=== PATIENT | male | born 1950 | race African-American/Black ===

== ENCOUNTER 2016-07-19 06:31 | Day surgery (SDC) | payer BC ==
--- NOTE | ~2016-07-19 | EGD ---
EGD REPORT [facility] [address] [address] NAME: BRYAN BARRIENTOS : [birth year] STATUS : REG [facility]#: [id number] AGE: 66 ADM/REG DATE : 07/19/16 MR#: [id number] REPORT SERV DATE: 07/19/16 DICTATED BY: RAGHU YANG DATE: 07/19/16 REPORT STATUS : Draft TRANSCRIBED BY: [facility] DATE: 07/19/16 Endoscopy Center Patient Name: Bryan Barrientos Date of : 1950 Attending MD: RAGHU YANG MD Procedure Date No Time: 07/19/2016 Procedure: Colonoscopy Indications: Iron deficiency anemia Referring MD: NUBIA ALFORD II Medicines: Propofol per Anesthesia Complications: No immediate complications. Procedure: Pre-Anesthesia Assessment: - ASA Grade Assessment: III - A patient with severe systemic disease. After I obtained informed consent, the scope was passed under direct vision. Throughout the procedure, the patient's blood pressure, pulse, and oxygen saturations were monitored continuously. The CF [id number] was introduced through the anus and advanced to the cecum, identified by appendiceal orifice and ileocecal valve. The colonoscopy was performed without difficulty. The patient tolerated the procedure well. The quality of the bowel preparation was adequate to identify polyps. Findings: A sessile polyp was found in the cecum. The polyp was 4 mm in size. This polyp was not removed due to pt on plavix. This polyp was not big enough to pose a threat A few medium-mouthed diverticula were found in the recto-sigmoid colon, in the sigmoid colon and in the descending colon. Internal hemorrhoids were found during retroflexion and were Grade I (internal hemorrhoids that do not prolapse). The rest of the colon was normal. Impression: - One 4 mm polyp in the cecum. - Diverticulosis in the recto-sigmoid colon, in the sigmoid colon and in the descending colon. - Internal hemorrhoids. Recommendation: - Discharge patient to home (ambulatory). Repeat colonosocpy in one year Procedure Code(s): --- Professional --- 16968, Colonoscopy, flexible, proximal to splenic flexure; diagnostic, with or without collection of EGD REPORT [address] [address] NAME: BRYAN BARRIENTOS : [birth year] STATUS : REG [facility] PAT#: [id number] AGE: 66 ADM/REG DATE : 07/19/16 MR#: [id number] REPORT SERV DATE: 07/19/16 DICTATED BY: RAGHU YANG. DATE: 07/19/16 REPORT STATUS : Draft TRANSCRIBED BY: [employer] DATE: 07/19/16 specimen(s) by brushing or washing, with or without colon decompression (separate procedure) Diagnosis Code(s): --- Professional --- D12.0, Benign neoplasm of cecum K64.0, First degree hemorrhoids K57.30, Diverticulosis of large intestine without perforation or abscess without bleeding D50.9, Iron deficiency anemia, unspecified CPT copyright 2013 [employer]. All rights reserved. The codes documented in this report are preliminary and upon director of tax services review may be revised to meet current compliance requirements. Raghu Yang MD RAGHU YANG MD 07/19/2016 8:34 AM This report has been signed electronically. Number of Addenda: 0 Note Initiated On: 07/19/2016 8:08 AM Scope Withdrawal Time 0 hours 3 minutes 18 seconds [address] [address]
--- NOTE | ~2016-07-19 | EGD ---
EGD REPORT [facility] [address] [address] NAME: BRYAN BARRIENTOS : [birth year] STATUS : REG [facility] PAT#: [id number] AGE: 66 ADM/REG DATE : 07/19/16 MR#: [id number] REPORT SERV DATE: 07/19/16 DICTATED BY: RAGHU YANG DATE: 07/19/16 REPORT STATUS : Draft [facility]ANSCRIBED BY: [facility] DATE: 07/19/16 Endoscopy Center Patient Name: Bryan Barrientos Date of : 1950 Attending MD: RAGHU YANG MD Procedure Date No Time: 07/19/2016 Procedure: Upper GI endoscopy Referring MD: NUBIA ALFORD II Medicines: Propofol per Anesthesia Complications: No immediate complications. Procedure: Pre-Anesthesia Assessment: - ASA Grade Assessment: III - A patient with severe systemic disease. After obtaining informed consent, the endoscope was passed under direct vision. Throughout the procedure, the patient's blood pressure, pulse, and oxygen saturations were monitored continuously. The GIF [id number] was introduced through the mouth, and advanced to the second part of duodenum. The upper GI endoscopy was accomplished without difficulty. The upper GI endoscopy was accomplished without difficulty. The patient tolerated the procedure well. Findings: The examined esophagus was normal. Diffuse mild inflammation characterized by erosions and erythema was found in the stomach. Diffuse mild inflammation was found in the duodenal bulb. Impression: - Normal esophagus. - Chronic gastritis. - Chronic duodenitis. Recommendation: - Discharge patient to home (ambulatory). - Return to nurse practitioner in 3 weeks. Procedure Code(s): --- Professional --- 42767, Esophagogastroduodenoscopy, flexible, transoral; diagnostic, including collection of specimen(s) by brushing or washing, when performed (separate procedure) Diagnosis Code(s): --- Professional --- K29.50, Unspecified chronic gastritis without bleeding K29.80, Duodenitis without bleeding EGD REPORT [facility] [address] [place]. [address] NAME: BRYAN BARRIENTOS : [birth year] STATUS : REG [facility] PAT#: [id number] AGE: 66 ADM/REG DATE : 07/19/16 MR#: [id number] REPORT SERV DATE: 07/19/16 DICTATED BY: RAGHU YANG. DATE: 07/19/16 REPORT STATUS : Draft TRANSCRIBED BY: [employer] DATE: 07/19/16 CPT copyright 2013 [employer]. All rights reserved. The codes documented in this report are preliminary and upon clutch mechanic review may be revised to meet current compliance requirements. Raghu Yang MD RAGHU YANG MD 07/19/2016 8:23 AM This report has been signed electronically. Number of Addenda: 0 Note Initiated On: 07/19/2016 8:13 AM Scope Withdrawal Time 0 hours 0 minutes 0 seconds [address] [place] [address]
[~2016-07-19 06:31] MED LIST: ALLEGRA180 PO; ASABAYER PO; DIOV160 PO; LIPITOR40 PO; LOP25 PO; PLAVIX PO; PROTONIX PO; [UNRECOGNIZED DRUG - REMARK] PO
== END 2016-07-19 23:59 | disposition home or self-care (01) ==
LOC: DMU 06:31
PROVIDERS: Internal Medicine Gastroenterology
PROC: 0DJD8ZZ Inspection of Lower Intestinal Tract, Via Natural or Artificial Opening Endoscopic (ICD-10-PCS; principal; 2016-07-19 08:00)
PROC: 0DJ08ZZ Inspection of Upper Intestinal Tract, Via Natural or Artificial Opening Endoscopic (ICD-10-PCS; 2016-07-19 08:00)
DX: D12.0 Benign neoplasm of cecum (principal); D50.9 Iron deficiency anemia, unspecified; K57.30 Diverticulosis of large intestine without perforation or abscess without bleeding; K64.8 Other hemorrhoids; K29.50 Unspecified chronic gastritis without bleeding; K29.80 Duodenitis without bleeding; I25.10 Atherosclerotic heart disease of native coronary artery without angina pectoris; I73.9 Peripheral vascular disease, unspecified; I10 Essential (primary) hypertension; F17.200 Nicotine dependence, unspecified, uncomplicated; Z95.5 Presence of coronary angioplasty implant and graft; Z95.820 Peripheral vascular angioplasty status with implants and grafts; Z88.0 Allergy status to penicillin; Z79.82 Long term (current) use of aspirin; Z79.02 Long term (current) use of antithrombotics/antiplatelets; Z79.899 Other long term (current) drug therapy